=== PATIENT | male | born 1985 | race Caucasian/White ===

== ENCOUNTER 2023-05-22 02:02 | Emergency (ER) | payer SELFPAY ==
[2023-05-22] MEDS ORDERED: Acetaminophen 325 MG TAB ONE (05:00)
[2023-05-22] MEDS ORDERED: Bacitracin 1 PK ONE (05:25)
== END 2023-05-22 05:45 | disposition home or self-care (01) ==
LOC: ERS 02:02
DX: S90.822A Blister (nonthermal), left foot, initial encounter (principal); S90.821A Blister (nonthermal), right foot, initial encounter; F17.220 Nicotine dependence, chewing tobacco, uncomplicated; X58.XXXA Exposure to other specified factors, initial encounter
CPT/HCPCS: 99284